=== PATIENT | male | born 1990 | race African-American/Black ===

== ENCOUNTER 2016-11-03 10:32 | Inpatient (IN) | payer OTHER ==
[~2016-11-03] VITALS: Ht 172.7 cm; Wt 83.1 kg
[2016-11-03 12:12] LABS: MEAN CORPUSCULAR HEMOGLOBIN 28.2 pg (27.0-33.0); MEAN CORPUSCULAR HGB CONC 33.8 g/dl (32.0-36.5); MEAN CORPUSCULAR VOLUME 83.4 fl (80.0-96.0); RED CELL DISTRIBUTION WIDTH 13.3 % (11.5-14.5); WHITE BLOOD COUNT 3.7 K/mm3 (4.0-10.0)
[2016-11-03 12:40] LABS: ALBUMIN 3.9 GM/DL (3.2-5.2); ALBUMIN/GLOBULIN RATIO 1.18 (1.00-1.93); ALKALINE PHOSPHATASE 77 U/L (45-117); ALT/SGPT 66 U/L (12-78); ANION GAP 7 MEQ/L (8-16); AST/SGOT 34 U/L (15-37); BILIRUBIN,DIRECT 0.1 MG/DL (0.0-0.2); BILIRUBIN,TOTAL 0.5 MG/DL (0.2-1.0); BLOOD UREA NITROGEN 8 MG/DL (7-18); CARBON DIOXIDE LEVEL 29 MEQ/L (21-32); CHLORIDE LEVEL 105 MEQ/L (98-107); CREATININE FOR GFR 1.11 MG/DL (0.70-1.30); GLOMERULAR FILTRATION RATE > 60.0 (>60); GLUCOSE, FASTING 81 MG/DL (70-105); SODIUM LEVEL 141 MEQ/L (136-145); TOTAL PROTEIN 7.2 GM/DL (6.4-8.2)
[2016-11-03 12:41] LABS: METHADONE URINE NEGATIVE (NEGATIVE)
[2016-11-03] MEDS ORDERED: MAALOX 30 ML SUSP *UDC PO PRN (18:00)
[2016-11-03] MEDS ORDERED: MOM 30ML SUSPENSION UDC PO PRN (18:00)
[2016-11-03] MEDS ORDERED: ACETAMINOPHEN TAB 650MG DOSE (2X325MG) PO PRN (18:00)
[2016-11-03 20:40] VITALS: BP 138/78
[2016-11-03] MEDS: traZODone 50 MG TAB PO PRN (21:57)
[2016-11-03] MEDS: risperiDONE 1 MG TAB PO SCH (21:57)
[2016-11-04 06:56] VITALS: BP 99/55
[2016-11-04] MEDS: risperiDONE 1 MG TAB PO SCH ×2 (09:28→22:10)
--- NOTE | 2016-11-04 09:49 | HPEPDOC ---
Medical History and Physical Date of Admission November 03, 2016 at 13:45 History and Physical PCP: [facility] ATTENDING: Dr. Girish Bai HPI: 26yoM admitted to [facility] for unspecified psychosis, being medically examined today. No acute medical complaints today. Denies any fevers, chills, weakness, fatigue, HUNTER, CP, SOB, cough, palpitations, abdominal pain, N/V/D or changes in bowel or bladder habits. PMHx: Pt denies Per record pt seeing [facility] for anxiety, insomnia, anger issues. PSHX: Denies SOCHX: Resides in: [place], from [place] Marital Status: Single Kids: None Employment: Active duty Tobacco use: Denies ETOH: Denies Illicit Drugs: Denies IV Drug Use: Denies Tattoos done unprofessionally: Denies FAMHX: Mother: Alive, well Father: Alive, well Siblings: 2 brothers Alive, well Children: None Unexpected deaths due to medical reasons: None. ROS: As noted in HPI, otherwise 11pt ROS of systems reviewed and unremarkable. PE: GEN: 26 yo M, appears stated age. Well-nourished, well developed. No acute distress. Alert and oriented x 3. Patient answers no to most questions, avoiding eye contact, short one-word answers. HEENT: Normocephalic, atraumatic. Pupils are equal, round, and reactive to light. Extraocular movements are intact. No nystagmus appreciated. Sclera are nonicteric. Conjunctiva without injection. Nose midline. Nasal turbinates without bogginess. EACs both patent BL. TMs both visualized and cook with good cone of light, no bulging or erythema. No facial asymmetry. Moist mucous membranes. Dentition fair. Pharynx pink and moist, no cobblestoning. Neck supple , trachea midline. No lymphadenopathy or thyromegaly appreciated. CHEST: Regular rate and rhythm, +S1, +S2 LUNGS: Clear to auscultation bilaterally. No wheezes, rales, or rhonchi. Breathing appears symmetric and easy. Patient is speaking in full sentences. No accessory muscle use. ABD: Round, soft, non-tender, non-distended. +Bowel sounds throughout. No rebound or guarding. No costovertebral angle tenderness. EXT: Pulses 2+ bilaterally dorsalis pedis and radial. No lower extremity edema appreciated. SKIN: [place], dry, warm. Capillary refill <2sec. No rashes. NEURO: Alert and oriented x 3. Cranial nerves III-XII are intact. No focal deficits appreciated. EKG: pending. A&P: 26yoM admitted to [facility] for unspecified psychosis 1. Psych. Plan per Psychiatry. Obtain baseline EKG to assure the safety of psychiatric medications as they can prolong the QT interval. Check UA/UC. 2. Follow up with PCP on discharge. 3. Staff member Cristino throughout exam. Vital Signs Vital Signs Date Time Temp Pulse Resp B/P (MAP) Pulse Ox O2 Delivery O2 Flow Rate FiO2 11/04/16 06:56 98.6 80 18 99/55 (70) Room Air 11/03/16 20:35 100 Laboratory Data Labs 24H Laboratory Tests 2 11/03/16 11:58: Anion Gap 7L, Glomerular Filtration Rate > 60.0, Calcium Level 9.0, Aspartate Amino Transf (AST/SGOT) 34, Alanine Aminotransferase (ALT/SGPT) 66, Alkaline Phosphatase 77, Total Bilirubin 0.5, Direct Bilirubin 0.1, Total Protein 7.2, Albumin 3.9, Albumin/Globulin Ratio 1.18, Thyroid Stimulating Hormone (TSH) 1.020, Salicylates Level < 1.7L, Urine Amphetamines Screen NEGATIVE, Urine Benzodiazepines Screen NEGATIVE, Urine Opiates Screen NEGATIVE, Urine Methadone Screen NEGATIVE, Acetaminophen Level < 2.0L, Urine Barbiturates Screen NEGATIVE , Urine Phencyclidine Screen NEGATIVE, Urine Cocaine Metabolite Screen NEGATIVE , Urine Cannabinoids Screen NEGATIVE, Ethyl Alcohol Level < 0.003 CBC/BMP Laboratory Tests 11/03/16 11:58 Red Blood Count 5.35, Mean Corpuscular Volume 83.4, Mean Corpuscular Hemoglobin 28.2, Mean Corpuscular Hemoglobin Concent 33.8, Red Cell Distribution Width 13.3 Home Medications No Active Prescriptions or Reported Meds Allergies Coded Allergies: No Known Allergies (Unverified , 11/03/16) Mallory Olivarez Nov 04, 2016 09:49
--- NOTE | 2016-11-04 11:59 | MHHPE ---
DATE OF ADMISSION: 11/03/2016 LEGAL STATUS AT ADMISSION: 9.39 legal status. CHIEF COMPLAINT: "I have been having problems with sleep and anger and somebody is messing up with my things at the barracks". 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 Legal status. According to the chart, the patient was referred by his therapist after he told the therapist that "people are entering in the barracks and "messing up with my food". The patient was saying that this person has gotten a hamburger and at times patties that have been removed from the packaging. The patient states that he tried to record the room, but "they tampered and they took off two hours worth of recording". The patient said that he has now a better camera and that he is able to record 24 hours. People at [place] found a cell taped underneath the desk drawer, but they did not find other cameras. During the interview today, the patient is calm and cooperative. The patient says that he has a sleep problem and anger problem and also described the problems he is having with "people breaking into his barracks". The patient admits that he has been sleep deprived. He says that usually he sleeps between 4 and 6 hours, but sometimes less. This has been happening for the last three months. The patient does not feel depressed. The patient does not feel paranoid and does not feel he is in danger. He does not feel that people are after him to get him. The patient does not accept the hypothesis that he is somewhat confused because of his sleep deprivation. He believes that "they are getting my things". The patient admits that nobody else in the unit is having the same problem. He says that he is getting along very well with the chain of command, he likes the [employer], has no stressors or problems. He has been in the [employer] for the last four years. PAST MEDICAL HISTORY: The patient denies any acute medical problems. The patient reports he is allergic to deodorants. PAST PSYCHIATRIC HISTORY: The patient has no prior psychiatric history. This is the first psychiatric intervention/admission. FAMILY HISTORY: The patient has no other relatives that have psychiatric problems or substance abuse problems. SUBSTANCE ABUSE HISTORY: The patient denies any current or past problems with drugs or alcohol. SOCIAL HISTORY: The patient was raised by both parents in [place]. He describes a completely normal childhood. Denies any abuse or neglect. School with good grades. No problems socializing or getting along with people. He finished high school and went to college. He joined the [employer] at age 22. He is still going to college in the [employer]. He is doing computer service and repair. He is single and has no children. His support system is his family. Again, they are in [place] and he contacts them frequently. REVIEW OF SYSTEMS: Constitutional: No weight loss, fever, chills, weakness or fatigue. HEENT: No visual loss, blurry vision, double vision or yellow sclerae. No hearing loss, sneezing, congestion, runny nose or sore throat. Skin: No rash or itching. Cardiovascular: No chest pain, chest pressure, chest discomfort, palpitations or edema. Respiratory: No shortness of breath, cough or sputum. Gastrointestinal (GI): No anorexia, nausea, vomiting or diarrhea. No abdominal pain or blood. Genitourinary (): No burning or pain on urination. Neurological: No headache, dizziness, syncope, paralysis, ataxia, numbness or tingling. Musculoskeletal: No muscle, back pain, joint pain or stiffness. Hematologic: No anemia, bleeding or bruising. Lymphatics: No history of a splenectomy. Endocrinologic: No report of sweating, cold or heat intolerance. No polyuria or polydipsia. Allergies: No history of asthma, hives, eczema or rhinitis. PHYSICAL EXAMINATION: As per physician assistant secretary. LABS AT ADMISSION: CBC showed WBC of 3.7, rest within normal limits. CMP unremarkable. TSH within normal limits. Urine drug screen is negative. Blood alcohol level is negative. MENTAL STATUS EXAMINATION: The patient is dressed in [facility]. The patient is calm and cooperative. Speech is clear, coherent, with normal rate and is spontaneous. The patient has good eye contact. Mood is euthymic. Affect is appropriate and congruent with mood. The patient is oriented to time, place, person and situation. Maintains attention and concentration correctly. Instant recall, recent and remote memory are intact. Thought processes are coherent, logical and goal directed. The patient does not have auditory or visual hallucination. The patient does have paranoid delusions. The patient feels that people are coming up to get things in his belongings and also has set up cameras "to catch him". The patient is denying suicidal or homicidal ideation. Judgment and insight are poor. DIAGNOSES: [place] I: Unspecified psychosis. Sleep deprivation. [place] II: Deferred. [place] III: None acute. INITIAL TREATMENT PLAN: The patient was admitted on a 9.39 legal status. Complete history was obtained. With his permission, family with be contacted and database will be expanded. His medication regime will be reviewed and changed accordingly. He will be provided with protected environment. He will be treated with individual, group and milieu therapies. He will also receive supportive psychoeducation. Discharge planning will commence immediately. Length of stay will be between 5-7 days. Outpatient followup will be strongly recommended. The treatment plan will focus initially on altered thoughts and poor impulse control.
[2016-11-04 18:00] VITALS: BP 143/72
--- NOTE | 2016-11-04 20:58 | ECGEPIP ---
Stationary ECG Study [facility] Test Date: 2016-11-04 Pat Name: AMY SHANKS Department: Room: [place] [address] Gender: M Vat Washer: MICHELA : 1990 Requested By: Mallory Olivarez Order Number: [id number] Reading MD: Girish Estrella Measurements Intervals [place] Rate: 69 P: 61 DC: 142 QRS: 81 QRSD: 88 T: 53 QT: 366 QTc: 393 Interpretive Statements SINUS RHYTHM WITH MARKED SINUS ARRHYTHMIA No prior ECG available for comparison at the time of interpretation. Electronically Signed On 11-04-2016 20:58:38 EDT by Girish Estrella
[2016-11-04] MEDS: traZODone 50 MG TAB PO PRN (22:10)
[2016-11-05 06:00] VITALS: BP 131/62
[2016-11-05] MEDS: risperiDONE 1 MG TAB PO SCH ×2 (09:32→20:27)
--- NOTE | 2016-11-05 16:10 | IPN ---
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 SUBJECTIVE: "I feel about the same." OBJECTIVE: No major changes from yesterday. The patient slept well with the help of medication. The patient is adapting well to the unit. Continues to have paranoid delusions. Is interacting minimally with other patients and staff. Is motivated for treatment. MENTAL STATUS EXAMINATION: The patient is dressed in [facility]. The patient is clean and well groomed, has fair eye contact. Speech is slow and monotone. Mood is euthymic. Affect is restricted. The patient continues with paranoid delusions. No hallucinations. Memory, attention and concentration are fair. The patient is able to contract for safety while in our unit. Insight and judgment are limited. ASSESSMENT: Unspecified psychosis. PLAN: 1. Continue with Risperdal 1 mg by mouth twice a day. 2. Continue with trazodone 50 mg by mouth at bedtime as needed for insomnia. 3. Continue close observation. 4. Continue medication management, individual and group psychotherapy.
[2016-11-05 18:00] VITALS: BP 123/63
[2016-11-05] MEDS: traZODone 50 MG TAB PO PRN (20:26)
[2016-11-06 06:06] VITALS: BP 129/60
[2016-11-06] MEDS: risperiDONE 1 MG TAB PO SCH ×2 (09:36→23:22)
[2016-11-06 18:07] VITALS: BP 110/56
--- NOTE | 2016-11-07 01:59 | IPN ---
DATE OF SERVICE: 11/06/2016 The patient today states "I'm doing good, just reading the Bible." I asked him if he still felt that people were trying to take his things and he said that no he was not thinking that way "because the staff say that there are criminal investigators that can do fingerprints, so I'm not worried about that stuff at this point." He did say he slept well and had no complaints. MENTAL STATUS EXAMINATION: The patient is alert and oriented times three. Eye contact is fairly good. Psychomotor activity is normal. He is verbally spontaneous. There is no formal thought disorder noted. He says his mood is "okay." Affect is restricted, but appropriate to his mood. He appears to continue to have some paranoid thinking. He is not suicidal, homicidal. Concentration fair. Memory intact. Insight and judgment poor. DIAGNOSIS: Other specified psychotic disorder. TREATMENT PLAN: We will continue to monitor the patient for continued resolution of his psychotic symptoms and we will continue to titrate his medication as indicated.
[2016-11-07 06:40] VITALS: BP 121/58
[2016-11-07] MEDS: risperiDONE 1 MG TAB PO SCH ×2 (08:52→21:18)
[2016-11-07 18:00] VITALS: BP 126/65
--- NOTE | 2016-11-08 04:24 | IPN ---
DATE OF SERVICE: 11/07/2016 The patient today states "I'm doing alright." He says he slept okay. He had no complaints. MENTAL STATUS EXAMINATION: This patient is alert and oriented times three. Eye contact is fair. Psychomotor activity is normal. He is verbally spontaneous. There is no formal thought disorder. He said his mood is fine. Affect constricted, but appropriate. He does appear to have paranoid delusions. The patient denies feeling suicidal or homicidal. Concentration is fair. Memory intact. Insight and judgment is good. DIAGNOSIS: Other specified psychotic disorder. TREATMENT PLAN: At this point, we will further observe and evaluate this patient for what appears to be ongoing psychotic symptoms. We will continue to titrate his medications as indicated.
[2016-11-08 06:00] VITALS: BP 128/58
[2016-11-08] MEDS: risperiDONE 1 MG TAB PO SCH (09:21)
--- NOTE | 2016-11-08 14:55 | IPN ---
DATE: 11/08/2016 A 26-year-old male, active-duty soldier, admitted for paranoid delusions/psychosis. SUBJECTIVE: "I'm fine." OBJECTIVE: The patient is doing well. The patient is able to sleep through the night. He denies any feelings of paranoia. Denies auditory or visual hallucinations. Reports his mood as euthymic. The patient is interacting with other patients and staff. The patient denies side effect from the medication. MENTAL STATUS EXAMINATION: The patient is dressed in [facility]. The patient is clean and well-groomed. He has fair eye contact. His speech is normal in rate, volume and articulation, is coherent and is spontaneous. The patient's mood is euthymic. Affect is congruent with mood. There is no evidence of delusions or hallucinations. Memory is fair. The patient is fully oriented. Associations are intact. Thinking is logical. Thought content is appropriate. The patient is able to contract for safety during the interview. Insight and judgment is fair. ASSESSMENT: Unspecified psychosis. PLAN: 1. Decrease Risperdal to 1 mg by mouth at bedtime. 2. Continue with trazodone as needed for insomnia. 3. Continue with medication management, individual and group therapy.
[2016-11-08 18:00] VITALS: BP 156/91
[2016-11-08] MEDS ORDERED: risperiDONE 1 MG TAB PO SCH (21:00)
[2016-11-09 06:37] VITALS: BP 129/69
[2016-11-09] MEDS ORDERED: RISP1TAB41 PO (12:03)
--- NOTE | 2016-11-09 16:15 | MHDS ---
DATE OF ADMISSION: 11/03/2016 DATE OF DISCHARGE: 11/09/2016 LEGAL STATUS AT ADMISSION: 9.39 legal status. 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 According to the chart, the patient was referred by his therapist after he told the therapist that, "people are entering in the barracks and messing up my food." The patient was saying that this person has gotten a hamburger and at times patties that had been removed from the packaging. The patient states that he tried to record the room but "they tampered and they took off two hours worth of recording." The patient said that he has now a better camera and he is now able to record 24 hours. It is reported that they found a cellphone tape underneath. They did not find other cameras. During the interview today, the patient is calm and cooperative. He says that he has a sleep problem and also anger. He described the problems he is having with "people breaking into the barracks." The patient admits that he has been sleep deprived. He says that he sleeps between 4 and 6 hours but sometimes less. Has been happening for the last three months. The patient denies any feelings of depression. He does not feel paranoid. He does not feel that he is in danger. He does not feel that people are after him to get him. The patient does not accept hypothesis that he is somewhat confused because of his sleep deprivation. He believes that "they are getting my things." The patient admits that nobody else in the unit is having the same problem. He says that he is getting along very well with the chain of command, he likes the [employer], he has no stressors or problems. He has been in the [employer] for the last four years. LABORATORIES ON ADMISSION: Unremarkable except WBC of 3.7. CMP is within normal limits. TSH within normal limits. Urine drug screen is negative. Blood alcohol level is negative. HOSPITALIZATION COURSE: After the first evaluation, the patient was started on Risperdal 1 mg by mouth twice a day and trazodone 50 mg by mouth at night as needed for insomnia. He took trazodone one night. He did not need this medication any longer so he did not take it. He did not have side effects from the medication. He was interacting very well with other patients and staff. He was motivated for treatment. The patient did not show any signs of symptoms of psychosis during this hospital admission. The above symptoms were reported before he came to the unit. At this point, the hypothesis is that the symptoms are related to the sleep deprivation since no other symptoms of psychosis have been seen in the unit. At the moment of discharge, the patient is in stable condition. Again, denies suicidal or homicidal ideation. Denies auditory or visual hallucinations or delusions. A chain of command meeting was held before discharge. The chain of command is very supportive. MENTAL STATUS EXAMINATION: The patient is dressed in [facility]. The patient is calm and cooperative, has good eye contact. Mood is euthymic. Affect is appropriate and congruent with mood. The patient is oriented to time, place, person and situation. Maintains attention and concentration correctly. Instant recall, recent and remote memory are intact. Thought process are coherent, logical and goal directed. The patient does not have auditory or visual hallucinations. The patient does not have paranoid, persecutory, somatic, grandiose or muslim delusions. The patient denies suicidal or homicidal ideation. Judgment and insight are fair. DISCHARGE DIAGNOSES: AXIS I: Unspecified psychosis, rule out psychosis secondary to medical conditions (insomnia). AXIS II: Deferred. AXIS III: None acute. DISCHARGE MEDICATIONS: - Risperdal 1 mg by mouth at night CONDITION AT DISCHARGE: Stable. No suicidal or homicidal ideation. No auditory or visual hallucinations. No delusions. Instructions to the patient: The patient is to continue taking his medications at discharge and followup appointments. He is advised to maintain absolute sobriety from drugs and alcohol. The patient has scheduled appointment for medication management, individual psychotherapy and primary care physician. Since we could not observe signs of symptoms of psychosis throughout this hospitalization, probably Risperdal needs to be tapered slowly and discontinued.
== END 2016-11-09 13:30 | disposition home or self-care (01) | DRG 885 ==
LOC: M ED 11:48 → M ED INP 13:45 → M PSY 20:40
PROVIDERS: ADMIT Psychiatry & Neurology Psychiatry; ATTEND Psychiatry & Neurology Psychiatry
DX: F29 Unspecified psychosis not due to a substance or known physiological condition (principal); G47.00 Insomnia, unspecified; Z79.899 Other long term (current) drug therapy